=== PATIENT | female | born 1995 | race Two or more races ===

== ENCOUNTER 2023-09-18 12:29 | Outpatient (REF) | payer OTHER, SELFPAY ==
--- NOTE | ~2023-09-18 | US_ITS ---
EXAMINATION: ULTRASOUND PELVIC, COMPLETE CLINICAL INFORMATION: Pelvic pain, check IUD. COMPARISON: None. TECHNIQUE: Pelvic ultrasound was performed using transvaginal and transabdominal technique without spectral doppler. FINDINGS: The uterus is of normal size and echogenicity measuring 8.0 x 4.3 x 5.7 cm. Left subserosal pedunculated fibroid from the lower uterine segment measuring 2.7 x 2.1 x 3.0 cm. The IUD appears in good position. The endometrial stripe measures 4 mm. The right ovary measures 3.4 x 2.0 x 2.7 cm cm, volume 9.4 mL. The right ovary appears normal. The left ovary measures 2.6 x 1.5 x 2.3 cm, volume 4.7 mL. The left ovary appears normal. There is small pelvic free fluid, likely physiologic. US/US pelvic limited IMPRESSION: Pedunculated subserosal fibroid left lower uterine segment measuring 3.0 cm. The IUD appears in good position.
--- NOTE | ~2023-09-18 | US_ITS ---
EXAMINATION: ULTRASOUND PELVIC, COMPLETE CLINICAL INFORMATION: Pelvic pain, check IUD. COMPARISON: None. TECHNIQUE: Pelvic ultrasound was performed using transvaginal and transabdominal technique without spectral doppler. FINDINGS: The uterus is of normal size and echogenicity measuring 8.0 x 4.3 x 5.7 cm. Left subserosal pedunculated fibroid from the lower uterine segment measuring 2.7 x 2.1 x 3.0 cm. The IUD appears in good position. The endometrial stripe measures 4 mm. The right ovary measures 3.4 x 2.0 x 2.7 cm cm, volume 9.4 mL. The right ovary appears normal. The left ovary measures 2.6 x 1.5 x 2.3 cm, volume 4.7 mL. The left ovary appears normal. There is small pelvic free fluid, likely physiologic. US/US pelvic and transvaginal IMPRESSION: Pedunculated subserosal fibroid left lower uterine segment measuring 3.0 cm. The IUD appears in good position.
== END 2023-09-18 12:30 | disposition home or self-care (01) ==
LOC: HO.UMASIMG 12:29
PROVIDERS: PCP Family Medicine; Visit Provider Family Medicine
DX: R10.2 Pelvic and perineal pain (principal); R22.9 Localized swelling, mass and lump, unspecified
CPT/HCPCS: 76830; 76856; 76857

== ENCOUNTER 2024-01-29 06:28 | Outpatient (REF) | payer OTHER, SELFPAY ==
--- NOTE | ~2024-01-29 | US_ITS ---
EXAMINATION: US SOFT TISSUES RIGHT BACK CLINICAL INFORMATION: Palpable lump in the right lower back. COMPARISON: None available. TECHNIQUE: Using a linear transducer with grayscale and color modalities, ultrasound examination is performed of the soft tissues of the right lower back. FINDINGS: The cutaneous, subcutaneous, muscular and fascial planes are unremarkable. Corresponding with the palpable finding, 1.8 x 0.9 x 1.4 cm and 0.6 x 0.7 x 0.5 cm heterogeneously hyperechoic, partially circumscribed nodules are seen. These show no associated color Doppler flow or change in through sound transmission. No fluid collection is seen. No lymphadenopathy is seen. There is no foreign body. US/US chest IMPRESSION: Ultrasound finding show 1.8 cm and 0.7 cm heterogeneously hyperechoic subcutaneous masses in the right lower back, which correspond with the palpable finding. The possibility that these represent lipomas is raised; the exact etiologies are indeterminate. If of continued clinical concern, these could be further evaluated with MRI.
== END 2024-01-29 06:29 | disposition home or self-care (01) ==
LOC: HO.UMASIMG 06:28
PROVIDERS: Visit Provider Family Medicine
DX: R22.9 Localized swelling, mass and lump, unspecified (principal)
CPT/HCPCS: 76604